=== PATIENT | female | born 1960 | race Caucasian/White ===

== ENCOUNTER 2021-08-13 22:00 | Emergency (ER) | payer SELFPAY ==
[~2021-08-13] VITALS: Ht 157.5 cm; Wt 62.7 kg
[2021-08-13 22:06] VITALS: TEMP 98.8
[2021-08-13] MEDS ORDERED: NORCO 325 MG-51 TAB PO (22:53)
[2021-08-13 23:00] VITALS: BP 132/78; PULSE 76
== END 2021-08-13 23:00 | disposition home or self-care (01) ==
LOC: COL.ER 22:00
DX: S63.92XA Sprain of unspecified part of left wrist and hand, initial encounter (principal); W23.1XXA Caught, crushed, jammed, or pinched between stationary objects, initial encounter; Y92.59 Other trade areas as the place of occurrence of the external cause; Y99.0 Civilian activity done for income or pay

== ENCOUNTER 2021-10-05 13:53 | Outpatient (RCR) | payer OTHER ==
[~2021-10-05 13:53] MED LIST: NORCO 325 MG-51 TAB PO
== END 2021-10-11 | disposition home or self-care (01) ==
LOC: WSOT
DX: S67.22XD Crushing injury of left hand, subsequent encounter (principal); X58.XXXD Exposure to other specified factors, subsequent encounter

== ENCOUNTER 2021-10-18 13:40 | Outpatient (RCR) | payer OTHER | END 2021-10-27 10:25 | disposition home or self-care (01) | LOC: WSOT 13:40 | DX: S61.213D Laceration without foreign body of left middle finger without damage to nail, subsequent encounter (principal); S61.211D Laceration without foreign body of left index finger without damage to nail, subsequent encounter; S60.02 Contusion of index finger without damage to nail; X58.XXXD Exposure to other specified factors, subsequent encounter ==